=== PATIENT | female | born 1940 | race Caucasian/White ===

== ENCOUNTER 2019-03-09 19:20 | Inpatient (IN) | payer MEDICARE, OTHER | END 2019-03-11 14:10 | disposition home or self-care (01) | LOC: ICU 23:30 → ER FS 19:20 → 4TH 03-10 08:55 | DX: J44.1 Chronic obstructive pulmonary disease with (acute) exacerbation (principal); R09.02 Hypoxemia; R64 Cachexia; D69.3 Immune thrombocytopenic purpura; D68.0 Von Willebrand disease; I48.91 Unspecified atrial fibrillation; I10 Essential (primary) hypertension; I95.9 Hypotension, unspecified; E86.1 Hypovolemia; E86.0 Dehydration; R63.0 Anorexia; I49.3 Ventricular premature depolarization; R00.0 Tachycardia, unspecified; F41.9 Anxiety disorder, unspecified; Z91.19 Patient's noncompliance with other medical treatment and regimen; Z87.891 Personal history of nicotine dependence ==

== ENCOUNTER → 2019-04-02 | Outpatient (CLI) | payer MEDICARE, OTHER ==
[~2019-04-02] MED LIST: ALBU2.5V4 INH; FLUT12AE4 IH; PRED10TA22 PO
--- NOTE | 2019-04-02 13:04 | Diagnostic Imaging Report ---
Modified barium swallow Indication: Dysphagia. There are no prior studies available for comparison. This exam was performed in the presence of speech pathologist called Eliz Cox. The patient was given thin barium to swallow. She immediately aspirated the barium. The aspiration did not produce a cough however. The patient was then given nectar consistency barium. There was no clear evidence for aspiration with nectar consistency. The patient is also able to swallow the applesauce, banana and ground beef impregnated barium without difficulty. Impression: The swallowing mechanism is compromised as there was aspiration of thin barium. There was no cough with the aspiration. Dictated by: Dictated on workstation # [id number]
== END ==
LOC: RAD 09:55
PROVIDERS: ATTEND Pediatrics
DX: R13.10 Dysphagia, unspecified (principal)
CPT/HCPCS: 74230